=== PATIENT | male | born 1940 | race Caucasian/White ===

== ENCOUNTER 2017-06-03 11:08 | Day surgery (SDC) | payer OTHER, BC ==
[~2017-06-03] VITALS: Ht 180.3 cm; Wt 83.9 kg
[~2017-06-03 11:08] MED LIST: ASPIRIN EC325 MG PO; ATORVASTATIN CA80 MG PO; Aspirin E.C. PO; CALCIO DEL MAR500 MG PO; CALCIUM 500 MG1 EAC1 PO; CALCIUM 500 MG1 EACH PO; CORAL CALCIUM1 EACH PO; FERROUS SULFAT325 MG PO; HYDROCODON-ACE1 EAC7 PO; HYDRODIURIL,O12.5 M2 PO; HYDROEYE PO; ILEVRO1.7 ML RIGHT EYE; LEVO-T75 MCG PO; LO-DOSE ASPIRIN81 M2 PO; Levothroid,Synthroid PO; NEXIUM40 MG PO; OCUVITE TABLET1 EACH PO; OMEPRAZOLE20 M2 PO; OMEPRAZOLE40 M1 PO; OSTEO BI-FLEX1 EAC1 PO; Osteo-Biflex,Flex-A- PO; PriLOSEC PO; SUCRALFATE1 GM PO; SYSTANE BALANCE10 ML BOTH EYES; TAMSULOSIN HCL0.4 MG PO; TYLENOL EXTRA500 MG PO; VITAMIN D31000 UNIT PO; VITAMIN D32000 UNI1 PO
== END 2017-06-03 14:05 | disposition home or self-care (01) ==
LOC: CATH 11:08
PROC: 0JH602Z Insertion of Monitoring Device into Chest Subcutaneous Tissue and Fascia, Open Approach (ICD-10-PCS; principal; 2017-06-03)
DX: I47.1 Supraventricular tachycardia (principal); I48.0 Paroxysmal atrial fibrillation; R55 Syncope and collapse; E78.5 Hyperlipidemia, unspecified; N40.0 Benign prostatic hyperplasia without lower urinary tract symptoms; E03.9 Hypothyroidism, unspecified; Z87.891 Personal history of nicotine dependence
CPT/HCPCS: C1764; J0690; J1200; J2250; J3010; S0020

== ENCOUNTER 2017-12-11 10:30 | Emergency (ER) | payer OTHER, BC ==
[~2017-12-11] VITALS: Ht 180.3 cm; Wt 83.6 kg
[2017-12-11 12:21] LABS: CHLORIDE 105 mEq/L (99-109); POTASSIUM 4.1 mEq/L (3.7-5.4); SODIUM 137 mEq/L (136-147)
[2017-12-11 12:22] LABS: HEMATOCRIT 42.1 % (38.0-50.0); HEMOGLOBIN 14.2 G/DL (12.5-16.6); MCH 30.1 PG (29.0-34.0); MCHC 33.7 G/DL (30.0-36.0); MCV 89.4 FL (86-99); PLATELET COUNT 188 K/uL (156-360); RBC DIS.WIDTH-CV 13.2 % (11.8-14.6); RBC DIS.WIDTH-SD 43.6 % (39-53); RED BLOOD COUNT 4.71 M/uL (4.00-5.50); WHITE BLOOD COUNT 6.1 K/uL (4.1-10.2)
[2017-12-11 12:23] LABS: GLUCOSE 86 mg/dL (70-99)
[2017-12-11 12:26] LABS: CREATININE 1.1 mg/dL (0.6-1.3); GFR ESTIMATE (CALCULATED) > 59 mL/min/ (58.99-99999)
[2017-12-11 12:27] LABS: UREA NITROGEN (BUN) 14 mg/dL (9-23)
[2017-12-11 12:40] VITALS: BP 163/92
== END 2017-12-11 12:42 | disposition home or self-care (01) ==
LOC: EME 10:30
PROVIDERS: Nurse Practitioner Family
DX: I10 Essential (primary) hypertension (principal); N40.0 Benign prostatic hyperplasia without lower urinary tract symptoms; Z87.442 Personal history of urinary calculi; Z87.891 Personal history of nicotine dependence; Z79.82 Long term (current) use of aspirin; Z88.8 Allergy status to other drugs, medicaments and biological substances
CPT/HCPCS: 80048; 85027; 93005